=== PATIENT | female | born 1960 | race Caucasian/White ===

== ENCOUNTER → 2018-03-11 10:59 | Outpatient (CLI) | payer OTHER, SELFPAY ==
[2018-03-11 12:44] LABS: TSH w/ Reflex to FT4 0.94 uIU/mL (0.47-4.68)
== END ==
PROVIDERS: PCP Family Medicine; Visit Provider Family Medicine
DX: E03.9 Hypothyroidism, unspecified (principal)
CPT/HCPCS: 36415; 84443

== ENCOUNTER → 2019-05-01 16:20 | Outpatient (CLI) | payer OTHER, SELFPAY | PROVIDERS: PCP Family Medicine; Visit Provider Physician Assistant | DX: R30.0 Dysuria (principal) | CPT/HCPCS: 87077; 87086; 87186 ==

== ENCOUNTER → 2020-10-24 09:52 | Outpatient (CLI) | payer OTHER, SELFPAY ==
[2020-10-24] MEDS: COVID-19 VACC #1, MRNA(MOD) 100 MCG/0.5 ML VIAL IM (10:00)
== END ==
PROVIDERS: PCP Family Medicine; Visit Provider Internal Medicine
DX: Z23 Encounter for immunization (principal)
CPT/HCPCS: 0011A; 91301

== ENCOUNTER → 2020-11-08 11:26 | Outpatient (CLI) | payer OTHER, SELFPAY ==
--- NOTE | 2020-11-08 | DI.MG.S_ITS ---
BILATERAL DIGITAL SCREENING MAMMOGRAM 3D/2D WITH CAD: 11/08/2020 CLINICAL: Routine screening. Comparison is made to exams dated: 12/04/2017 mammogram, 11/27/2016 mammogram, and 08/06/2015 mammogram - [facility]. The tissue of both breasts is heterogeneously dense. This may lower the sensitivity of mammography. Current study was also evaluated with a Computer Aided Detection (CAD) system. No significant masses, calcifications, or other findings are seen in either breast. There has been no significant interval change. IMPRESSION: NEGATIVE There is no mammographic evidence of malignancy. A 1 year screening mammogram is recommended. This exam was interpreted at Station ID: [id number]. NOTE: For mammograms, a report in lay terms will be sent to the patient. Approximately 15% of breast malignancies will not be visualized mammographically. In the management of a palpable breast mass, a negative mammogram must not discourage biopsy of a clinically suspicious lesion. Electronically Signed By: James rubi/kobe:11/08/2020 12:23:52 letter sent: Normal Exam ACR BI-RADS Category 1: Negative 3341F
== END ==
PROVIDERS: PCP Family Medicine; Referring Provider Family Medicine; Visit Provider Family Medicine
DX: Z12.31 Encounter for screening mammogram for malignant neoplasm of breast (principal)
CPT/HCPCS: 77063; 77067

== ENCOUNTER → 2020-11-21 09:56 | Outpatient (CLI) | payer OTHER, SELFPAY ==
[2020-11-21] MEDS: COVID-19 VACC #2, MRNA(MOD) 100 MCG/0.5 ML VIAL IM (10:03)
== END ==
PROVIDERS: PCP Family Medicine; Visit Provider Internal Medicine
DX: Z23 Encounter for immunization (principal)
CPT/HCPCS: 0012A; 91301

== ENCOUNTER 2021-04-03 09:00 | Outpatient (RCR) | payer OTHER, SELFPAY ==
--- NOTE | 2021-03-12 16:00 | PT.OIE ---
Current Diagnoses Other specified disorders of muscle (03/12/21) Stress incontinence (female) (male) (03/12/21) Past Medical History (Last Updated 01/17/20 @ 21:02 by Mary Carter DO) Chronic back pain Elevated high sensitivity C-reactive protein Fall at home (~07/2007) Hypothyroidism Vertigo Past Surgical History (Last Reviewed 05/17/19 @ 15:55 by Maisha Hyman MD) History of carpal tunnel repair History of tonsillectomy Status post hysterectomy (11/03/08) Status post ovarian cystectomy Status post tubal ligation Visit Care Team Role Provider Type Mary Carter DO Attending Provider Physician Primary Care Provider Referring Provider Specialty: [facility] Address: [address] [place] [address], [address], [facility] Email: [email or web address] Physical Therapy Initial Evaluation PT-OP-A Visit Information Start: 03/12/21 11:24 Freq: Status: Active Protocol: Document 03/12/21 11:00 AMB (Rec: 03/16/21 08:43 AMB [email or web address]) Out-Patient Physical Therapy Visit Information Visit Information Visit Type Initial Evaluation Visit Start Time 11:00 Visit Stop Time 11:45 Total Visit Minutes 45 Visit Number 1 PT-OP-B Current Condition Start: 03/12/21 11:08 Freq: Status: Active Protocol: Document 03/12/21 11:08 AMB (Rec: 03/12/21 11:21 AMB [id number]) Current Condition History of Current Condition Onset Date 5 years+ Current Complaints Stress urinary incontinence History of Current Condition Bladder leaking worsening over the last 5-6 years. Had been doing kegels on the drive to work and then retired, sometimes does them now. Leaking even in childhood. G0 . Laughing, jumping exacerbate symptoms. Denies chronic constipation and chronic coughing. Does take magnolia bark for the last year and that is helpful. Vaginal pain with intercourse helped with premarin. Treatment Goals Patient/Caregiver Goals Laugh/ jumping without leaking , get off magnolia bark and see if that helps. Prior Functional Status Baseline Function- ADL's Independent Baseline Function- Mobility Independent Personal Factors Other Personal Factors That May Effect Hysterectomy in 2003 Therapy/Recovery PT-OP-C Subjective Start: 03/12/21 11:24 Freq: Status: Active Protocol: Document 03/12/21 11:00 AMB (Rec: 03/16/21 09:35 AMB [email or web address]) Patient Questionnaires Pelvic Pain and Urgency/Frequency Patient Symptom Scale Pelvic Pain Score 11 PT-OP-I Pelvic Floor Start: 03/12/21 11:24 Freq: Status: Active Protocol: Document 03/12/21 11:00 AMB (Rec: 03/16/21 09:35 AMB [email or web address]) Pelvic Floor Assessment Urine Pelvic Floor Surgery Yes: Hysterectomy 2004 Leakage Size Medium Leakage Cause Exercise Other Leakage Causes laughing Voiding Frequency 7/day Nocturia 1 Urine Pad Type Panty Liner Bowel Other Bowel Symptoms denies constipation Prolapse Prolapse Comments No prolapse visualized Contraction Ability Manual Muscle Testing Left 2 Manual Muscle Testing Right 2 Manual Muscle Testing Anterior 2 Manual Muscle Testing Posterior 2 Muscle Endurance (Seconds) 5 Comments Pelvic Floor Comments Poor levator ani activation, tends to over use abs, hold breath PT-OP-T Assessment and Plan Start: 03/12/21 11:24 Freq: Status: Active Protocol: Document 03/12/21 11:00 AMB (Rec: 03/16/21 09:35 AMB [email or web address]) Physical Therapy Assessment Rehab Potential Rehabilitation Potential Good Evaluation Complexity Number of Personal Factors/Comorbidities 1-2 Number of Body Systems Impaired 1-2 Clinical Presentation at Evaluation Stable Impairments Impairments Activity Tolerance,Functional Activities Goals Two Impairment Pelvic floor strength Short Term Goal (STG) Bhavna will be independent with a HEP for her pelvic floor strength. STG Duration 4 weeks [facility]ist [facility] Goal (LTG) Bhavna will show improved pelvic floor strength by holding a pelvic floor contraction for 10 seconds in standing without compensation. LTG Duration 8 weeks One Impairment Stress incontinence Short Term Goal (STG) Bhavna will laugh without leaking urine. STG Duration 4 weeks [facility] Goal (LTG) Bhavna will jump without leaking urine. LTG Duration 8 weeks Assessment Summary Assessment Bhavna attends physical therapy with a history of life long incontinence. As a child it was moer leaking if she forgot to go the bathroom frequently , and has progressed to more leaking with laughing and jumping. She had good strength of her superficial pelvic floor, but would benefit from strengthening of her levator ani. She did not have any signs of prolapse and denied chronic constipation or cough. Physical Therapy Plan Frequency and Duration Frequency of Treatment 1x/Week Duration of Treatment 8 weeks Plan of Care Start Date 03/12/21 Plan of Care End Date 05/07/21 Therapeutic Interventions Therapeutic Interventions Home Exercise Program,Manual Therapy,Neuromuscular Re- education,Self-Care/Home Management,Therapeutic Activities,Therapeutic Exercises Modalities Biofeedback,Cold Pack/Ice Massage,Electric Stimulation, Hot Packs Next Visit Focus/Plan Next Note Type Treatment Note Next Visit Plan sEMG, progress into seated/ standing HEP as tolerated
--- NOTE | 2021-03-12 16:00 | PT.OPPOC ---
Physical, Occupational & Speech Therapy At [facility] Current Diagnoses Other specified disorders of muscle (03/12/21) Stress incontinence (female) (male) (03/12/21) Visit Care Team Role Provider Type Mary Carter DO Attending Provider Physician Primary Care Provider Referring Provider Specialty: Family Practice Address: [address] [place] [address], [address], [facility] Email: [email or web address] Plan Of Care PT-OP-T Assessment and Plan Start: 03/12/21 11:24 Freq: Status: Active Protocol: Document 03/12/21 11:00 AMB (Rec: 03/16/21 09:35 AMB [email or web address]) Physical Therapy Assessment Rehab Potential Rehabilitation Potential Good Evaluation Complexity Number of Personal Factors/Comorbidities 1-2 Number of Body Systems Impaired 1-2 Clinical Presentation at Evaluation Stable Impairments Impairments Activity Tolerance,Functional Activities Goals Two Impairment Pelvic floor strength Short Term Goal (STG) Bhavna will be independent with a HEP for her pelvic floor strength. STG Duration 4 weeks Senior Care Goal (LTG) Bhavna will show improved pelvic floor strength by holding a pelvic floor contraction for 10 seconds in standing without compensation. LTG Duration 8 weeks One Impairment Stress incontinence Short Term Goal (STG) Bhavna will laugh without leaking urine. STG Duration 4 weeks Semiconductor Equipment Technician Goal (LTG) Bhavna will jump without leaking urine. LTG Duration 8 weeks Assessment Summary Assessment Bhavna attends physical therapy with a history of life long incontinence. As a child it was moer leaking if she forgot to go the bathroom frequently , and has progressed to more leaking with laughing and jumping. She had good strength of her superficial pelvic floor, but would benefit from strengthening of her levator ani. She did not have any signs of prolapse and denied chronic constipation or cough. Physical Therapy Plan Frequency and Duration Frequency of Treatment 1x/Week Duration of Treatment 8 weeks Plan of Care Start Date 03/12/21 Plan of Care End Date 05/07/21 Therapeutic Interventions Therapeutic Interventions Home Exercise Program,Manual Therapy,Neuromuscular Re- education,Self-Care/Home Management,Therapeutic Activities,Therapeutic Exercises Modalities Biofeedback,Cold Pack/Ice Massage,Electric Stimulation, Hot Packs Next Visit Focus/Plan Next Note Type Treatment Note Next Visit Plan sEMG, progress into seated/ standing HEP as tolerated Plan of Care Dates Plan of Care Start Date 03/12/21 Plan of Care End Date 05/07/21 Electronically Signed by: Jacqueline Rosario, PT 03/16/21 0937 Please Sign and Return: I have reviewed this Plan of Care and certify that the skilled therapy services above are required to meet the patient?s needs. Physician Signature Date Printed Name and Credentials Clinical Instructor Signature Printed Name and Credentials
--- NOTE | 2021-03-27 15:48 | PT.OTN ---
Current Diagnoses Other specified disorders of muscle (03/27/21) Stress incontinence (female) (male) (03/27/21) Physical Therapy Treatment Note PT-OP-A Visit Information Start: 03/12/21 11:24 Freq: Status: Active Protocol: Document 03/27/21 09:00 AMB (Rec: 03/27/21 10:55 AMB [id number]) Out-Patient Physical Therapy Visit Information Visit Information Visit Type Treatment Note Visit Start Time 09:00 Visit Stop Time 09:45 Total Visit Minutes 45 Visit Number 2 PT-OP-B Current Condition Start: 03/12/21 11:08 Freq: Status: Active Protocol: Document 03/12/21 11:08 AMB (Rec: 03/12/21 11:21 AMB [id number]) Current Condition History of Current Condition Onset Date 5 years+ Current Complaints Stress urinary incontinence History of Current Condition Bladder leaking worsening over the last 5-6 years. Had been doing kegels on the drive to work and then retired, sometimes does them now. Leaking even in childhood. G0 . Laughing, jumping exacerbate symptoms. Denies chronic constipation and chronic coughing. Does take magnolia bark for the last year and that is helpful. Vaginal pain with intercourse helped with premarin. Treatment Goals Patient/Caregiver Goals Laugh/ jumping without leaking , get off magnolia bark and see if that helps. Prior Functional Status Baseline Function- ADL's Independent Baseline Function- Mobility Independent Personal Factors Other Personal Factors That May Effect Hysterectomy in 2003 Therapy/Recovery PT-OP-C Subjective Start: 03/12/21 11:24 Freq: Status: Active Protocol: Document 03/12/21 11:00 AMB (Rec: 03/16/21 09:35 AMB [email or web address]) Patient Questionnaires Pelvic Pain and Urgency/Frequency Patient Symptom Scale Pelvic Pain Score 11 PT-OP-I Pelvic Floor Start: 03/12/21 11:24 Freq: Status: Active Protocol: Document 03/12/21 11:00 AMB (Rec: 03/16/21 09:35 AMB [email or web address]) Pelvic Floor Assessment Urine Pelvic Floor Surgery Yes: Hysterectomy 2004 Leakage Size Medium Leakage Cause Exercise Other Leakage Causes laughing Voiding Frequency 7/day Nocturia 1 Urine Pad Type Panty Liner Bowel Other Bowel Symptoms denies constipation Prolapse Prolapse Comments No prolapse visualized Contraction Ability Manual Muscle Testing Left 2 Manual Muscle Testing Right 2 Manual Muscle Testing Anterior 2 Manual Muscle Testing Posterior 2 Muscle Endurance (Seconds) 5 Comments Pelvic Floor Comments Poor levator ani activation, tends to over use abs, hold breath PT-OP-Q Treatments Start: 03/12/21 11:24 Freq: Status: Active Protocol: Document 03/27/21 15:46 AMB (Rec: 03/27/21 15:48 AMB [email or web address]) Therapeutic Exercises Sitting Exercises 1 Sitting Exercise Name roll in roll out Reps/Minutes 10 Standing Exercises 1 Standing Exercise Name sit to stand Reps/Minutes 10 Comments difficult Other Exercises 1 Other Exercise Name quadruped pelvic floor contract Reps/Minutes 10 Comments UE flexion PT-OP-T Assessment and Plan Start: 03/12/21 11:24 Freq: Status: Active Protocol: Document 03/27/21 09:00 AMB (Rec: 03/27/21 10:55 AMB [id number]) Physical Therapy Assessment Goals Two Impairment Pelvic floor strength Short Term Goal (STG) Bhavna will be independent with a HEP for her pelvic floor strength. STG Duration 4 weeks Retirement Goal (LTG) Bhavna will show improved pelvic floor strength by holding a pelvic floor contraction for 10 seconds in standing without compensation. LTG Duration 8 weeks One Impairment Stress incontinence Short Term Goal (STG) Bhavna will laugh without leaking urine. STG Duration 4 weeks Retirement Goal (LTG) Bhavna will jump without leaking urine. LTG Duration 8 weeks Assessment Summary Assessment Bhavna did well with exercises, most challenged by moving from sit to stand and standing exercises, especially with long holds. Physical Therapy Plan Next Visit Focus/Plan Next Note Type Treatment Note Next Visit Plan sEMG, progress into seated/ standing HEP as tolerated
--- NOTE | 2021-04-03 10:06 | PT.OTN ---
Current Diagnoses Other specified disorders of muscle (04/03/21) Stress incontinence (female) (male) (04/03/21) Physical Therapy Treatment Note PT-OP-A Visit Information Start: 03/12/21 11:24 Freq: Status: Active Protocol: Document 04/03/21 09:13 AMB (Rec: 04/03/21 09:38 AMB [id number]) Out-Patient Physical Therapy Visit Information Visit Information Visit Type Treatment Note Visit Start Time 09:15 Visit Stop Time 09:45 PT-OP-B Current Condition Start: 03/12/21 11:08 Freq: Status: Active Protocol: Document 03/12/21 11:08 AMB (Rec: 03/12/21 11:21 AMB [id number]) Current Condition History of Current Condition Onset Date 5 years+ Current Complaints Stress urinary incontinence History of Current Condition Bladder leaking worsening over the last 5-6 years. Had been doing kegels on the drive to work and then retired, sometimes does them now. Leaking even in childhood. G0 . Laughing, jumping exacerbate symptoms. Denies chronic constipation and chronic coughing. Does take magnolia bark for the last year and that is helpful. Vaginal pain with intercourse helped with premarin. Treatment Goals Patient/Caregiver Goals Laugh/ jumping without leaking , get off magnolia bark and see if that helps. Prior Functional Status Baseline Function- ADL's Independent Baseline Function- Mobility Independent Personal Factors Other Personal Factors That May Effect Hysterectomy in 2003 Therapy/Recovery PT-OP-C Subjective Start: 03/12/21 11:24 Freq: Status: Active Protocol: Document 04/03/21 09:15 AMB (Rec: 04/03/21 10:04 AMB [id number]) OP-PT Subjective Patient Comments Patient Comments Bhavna has had a difficult time finding time to do her exercises this week. She did have a leak when she fell while hiking. PT-OP-I Pelvic Floor Start: 03/12/21 11:24 Freq: Status: Active Protocol: Document 03/12/21 11:00 AMB (Rec: 03/16/21 09:35 AMB [email or web address]) Pelvic Floor Assessment Urine Pelvic Floor Surgery Yes: Hysterectomy 2004 Leakage Size Medium Leakage Cause Exercise Other Leakage Causes laughing Voiding Frequency 7/day Nocturia 1 Urine Pad Type Panty Liner Bowel Other Bowel Symptoms denies constipation Prolapse Prolapse Comments No prolapse visualized Contraction Ability Manual Muscle Testing Left 2 Manual Muscle Testing Right 2 Manual Muscle Testing Anterior 2 Manual Muscle Testing Posterior 2 Muscle Endurance (Seconds) 5 Comments Pelvic Floor Comments Poor levator ani activation, tends to over use abs, hold breath PT-OP-Q Treatments Start: 03/12/21 11:24 Freq: Status: Active Protocol: Document 04/03/21 09:15 AMB (Rec: 04/03/21 10:04 AMB [id number]) Neuro Re-Education Treatment Other Activities 1 Comments quick flicks and long holds with sEMG PT-OP-T Assessment and Plan Start: 03/12/21 11:24 Freq: Status: Active Protocol: Document 04/03/21 09:13 AMB (Rec: 04/03/21 09:38 AMB [id number]) Physical Therapy Assessment Assessment Summary Assessment max 23, avg 14, baseline 2 for 10 sec holds. Lila pelvic floor while moving from sit to stand is still challenging, encouraged pt to find time during other activities (brushing teeth, moving from sit to stand, to do her exercises. Physical Therapy Plan Next Visit Focus/Plan Next Note Type Treatment Note Next Visit Plan follow up on lila with movement (sit to stand)
--- NOTE | 2021-05-20 08:57 | PT.OPDS ---
Current Diagnoses Other specified disorders of muscle (04/03/21) Stress incontinence (female) (male) (04/03/21) Visit Care Team Role Provider Type Mary Carter DO Attending Provider Physician Primary Care Provider Referring Provider Specialty: [facility] Address: [address] [place] [address], [address], [address] Email: [email or web address] Visit Number Visit Number 2 Discharge Summary PT-OP-B Current Condition Start: 03/12/21 11:08 Freq: Status: Active Protocol: Document 03/12/21 11:08 AMB (Rec: 03/12/21 11:21 AMB [id number]) Current Condition History of Current Condition Onset Date 5 years+ Current Complaints Stress urinary incontinence History of Current Condition Bladder leaking worsening over the last 5-6 years. Had been doing kegels on the drive to work and then retired, sometimes does them now. Leaking even in childhood. G0 . Laughing, jumping exacerbate symptoms. Denies chronic constipation and chronic coughing. Does take magnolia bark for the last year and that is helpful. Vaginal pain with intercourse helped with premarin. Treatment Goals Patient/Caregiver Goals Laugh/ jumping without leaking , get off magnolia bark and see if that helps. Prior Functional Status Baseline Function- ADL's Independent Baseline Function- Mobility Independent Personal Factors Other Personal Factors That May Effect Hysterectomy in 2003 Therapy/Recovery PT-OP-C Subjective Start: 03/12/21 11:24 Freq: Status: Active Protocol: Document 04/03/21 09:15 AMB (Rec: 04/03/21 10:04 AMB [id number]) OP-PT Subjective Patient Comments Patient Comments Bhavna has had a difficult time finding time to do her exercises this week. She did have a leak when she fell while hiking. PT-OP-I Pelvic Floor Start: 03/12/21 11:24 Freq: Status: Active Protocol: Document 03/12/21 11:00 AMB (Rec: 03/16/21 09:35 AMB [email or web address]) Pelvic Floor Assessment Urine Pelvic Floor Surgery Yes: Hysterectomy 2004 Leakage Size Medium Leakage Cause Exercise Other Leakage Causes laughing Voiding Frequency 7/day Nocturia 1 Urine Pad Type Panty Liner Bowel Other Bowel Symptoms denies constipation Prolapse Prolapse Comments No prolapse visualized Contraction Ability Manual Muscle Testing Left 2 Manual Muscle Testing Right 2 Manual Muscle Testing Anterior 2 Manual Muscle Testing Posterior 2 Muscle Endurance (Seconds) 5 Comments Pelvic Floor Comments Poor levator ani activation, tends to over use abs, hold breath PT-OP-T Assessment and Plan Start: 03/12/21 11:24 Freq: Status: Active Protocol: Document 05/20/21 08:56 AMB (Rec: 05/20/21 08:57 AMB [email or web address]) Physical Therapy Assessment Assessment Summary Assessment The patient called to say that she did not need any more appointments after her second appointment. She was seen for two appointments therefore did not meet her goals. Physical Therapy Plan Discharge Physical Therapy Discharge Reasons No Longer Attending PT
== END 2021-06-07 14:26 ==
LOC: PHYS 09:00
PROVIDERS: PCP Family Medicine; Referring Provider Family Medicine; Visit Provider Family Medicine
DX: M62.89 Other specified disorders of muscle (principal); N39.3 Stress incontinence (female) (male)
CPT/HCPCS: 97110; 97112; 97161

== ENCOUNTER → 2021-12-10 14:07 | Outpatient (CLI) | payer OTHER, SELFPAY ==
--- NOTE | 2021-12-10 | DI.MRI.S_ITS ---
PROCEDURE: MR CERVICAL SPINE WO CON INDICATIONS: Cervicalgia TECHNIQUE: Noncontrast sagittal T1 spin echo and T2 fast spin echo, sagittal STIR, foraminal oblique sagittal T2 fast spin echo, and axial gradient echo or T2 fast spin echo through the cervical spine. COMPARISON: [facility] [place], CR, XR CERVICAL SPINE WITH OBLIQUES, 11/18/2021, 10:38. FINDINGS: Image quality: Excellent. Alignment and Curvature: There is normal bony alignment. There is straightening normal cervical spine curvature. Bone Marrow: Marrow demonstrates normal overall signal. Spinal Cord: Visualized spinal cord has normal size and signal. No cerebellar tonsillar herniation. Paraspinous Soft Tissues: No paravertebral masses. Prevertebral soft tissues are normal in thickness. C2-C3: Loss of disc signal. Mild, diffuse disc bulge. Moderate left facet hypertrophy. No central stenosis. Severe left neural foraminal narrowing with compression of the left C3 nerve root. C3-C4: Loss of disc signal. Mild, diffuse disc bulge. Moderate left facet hypertrophy. No central stenosis. Severe left neural foraminal narrowing with compression of the exiting left C4 nerve root. C4-C5: Loss of disc signal and mild loss of disc height. Mild, diffuse disc bulge. Severe left facet hypertrophy. Mild narrowing of the central canal. Severe left neural foraminal narrowing with compression of the exiting left C5 nerve root. C5-C6: Loss of disc signal and height. Moderate, diffuse disc bulge. Mild bilateral facet hypertrophy. Severe right uncovertebral joint hypertrophy. Moderate narrowing of the central canal. Severe right and moderate left neural foraminal narrowing with compression of the exiting right C6 nerve root. C6-C7: Loss of disc signal. Mild to moderate diffuse disc bulge. Mild narrowing of the central canal. No neural foraminal narrowing. No neural compression. C7-T1: Loss of disc signal and height. Moderate, diffuse disc bulge. Mild narrowing of the central canal. No neural foraminal narrowing. No neural compression IMPRESSION: 1. Multilevel degenerative disc disease. 2. Multilevel facet arthropathy. 3. No severe central canal narrowing. 4. Severe left C2-C3, C3-C4 and C4-C5 neural foraminal narrowing with compression of the exiting left C3, C4 and C5 nerve roots. Severe right C5-C6 neural foraminal narrowing with compression of the exiting right C6 nerve root. Dictated by: Ame Lafleur MD, PhD on 12/10/2021 at 15:36 Approved by: Ame Lafleur MD, PhD on 12/10/2021 at 15:40
== END ==
PROVIDERS: PCP Family Medicine; Referring Provider Physical Medicine & Rehabilitation; Visit Provider Physical Medicine & Rehabilitation
DX: M50.31 Other cervical disc degeneration, high cervical region (principal); M47.812 Spondylosis without myelopathy or radiculopathy, cervical region; M48.02 Spinal stenosis, cervical region
CPT/HCPCS: 72141

== ENCOUNTER → 2022-11-05 15:01 | Outpatient (CLI) | payer OTHER, SELFPAY ==
--- NOTE | 2022-11-05 | DI.MG.S_ITS ---
BILATERAL DIGITAL SCREENING MAMMOGRAM 3D/2D WITH CAD: 11/05/2022 CLINICAL: Routine screening. Comparison is made to exams dated: 11/08/2020 mammogram, 12/04/2017 mammogram, and 11/27/2016 mammogram - [facility]. Both breasts are heterogeneously dense, which may obscure small masses (category c / 51-75% glandular tissue). Current study was also evaluated with a Computer Aided Detection (CAD) system. No significant masses, calcifications, or other findings are seen in either breast. There has been no significant interval change. IMPRESSION: NEGATIVE There is no mammographic evidence of malignancy. A 1 year screening mammogram is recommended. Based on the Tyrer Cuzick model (a risk assessment model) the patient's lifetime risk is 9.8% and her 10 year risk is 4.6%. According to the ACR, ACS, and NCCN guidelines, an annual breast MRI exam along with mammogram is recommended if the patient's lifetime risk is 20% or greater. This exam was interpreted at Station ID: [id number]. NOTE: For mammograms, a report in lay terms will be sent to the patient. Approximately 15% of breast malignancies will not be visualized mammographically. In the management of a palpable breast mass, a negative mammogram must not discourage biopsy of a clinically suspicious lesion. Electronically Signed By: Ela navarrete/kobe:11/05/2022 16:09:05 letter sent: Normal Exam ACR BI-RADS Category 1: Negative [id number]
== END ==
PROVIDERS: PCP Family Medicine; Referring Provider Family Medicine; Visit Provider Family Medicine
DX: Z12.31 Encounter for screening mammogram for malignant neoplasm of breast (principal)
CPT/HCPCS: 77063; 77067

== ENCOUNTER → 2023-03-24 10:19 | Outpatient (CLI) | payer OTHER, SELFPAY ==
--- NOTE | 2023-03-24 10:21 | DI.RAD.S_ITS ---
Bone Density Report Name: CORTES MAYA Age: 62 Sex: Female Ethnicity: White Date of : 1960 Indication: postmenopausal; screening for osteoporosis; Referring Provider: DONG MON Study: Bone densitometry was performed. Exam Date: March 24, 2023 Accession number: [id number] Bone Density: Region BMD T-score Z-score Classification AP Spine(L1-L4) 0.843 -1.9 -0.1 Osteopenia Femoral Neck (Left) 0.631 -2.0 -0.5 Osteopenia Total Hip (Left) 0.723 -1.8 -0.6 Osteopenia Femoral Neck (Right) 0.664 -1.7 -0.2 Osteopenia Total Hip (Right) 0.784 -1.3 -0.1 Osteopenia Total Hip Mean 0.753 -1.6 -0.4 Osteopenia World Health Organization criteria for BMD impression classify patients as: Normal (T-score at or above -1.0), Osteopenia (T-score between -1.0 and -2.5), or Osteoporosis (T-score at or below -2.5). 10-year Fracture Risk(1): Major Osteoporotic Fracture 8.9% Hip Fracture 1.4% Reported Risk Factors: [place] (), Neck BMD=0.631, BMI=19.7 (1) FRAX(R) Version 3.08. Fracture probability calculated for an untreated patient. Fracture probability may be lower if the patient has received treatment. Impression: The patient has low bone mass, based on the Left Femoral Neck T-score. The patient has an estimated ten-year risk of hip fracture of 1.4% and an estimated ten-year risk of major fracture of 8.9%, based on the WHO FRAX algorithm. Discussion: BONE DENSITY IS LOW AT ONE OR MORE SKELETAL SITES. This patient's lowest T-score is low at one or more skeletal sites. It meets the World Health Organization's (WHO) criteria for low bone mass (T-score between -1.0 and -2.5). The patient's 10-year risk of fracture as calculated by FRAX is less than the threshold where pharmacological therapy is recommended by the National Osteoporosis Foundation (NOF). However, all treatment decisions require clinical judgment and consideration of individual patient factors, including patient preferences, comorbidities, previous drug use, risk factors not captured in the FRAX model (e.g., frailty, falls, vitamin D deficiency, increased bone turnover, interval significant decline in bone density) and possible under or overestimation of fracture risk by FRAX. The patient should follow a healthful lifestyle (good nutrition with adequate calcium and vitamin D, and appropriate weight-bearing exercise). Follow-Up: Consider repeating this study in 2 to 3 years to reassess this patient's status, or sooner if there is some new clinical indication. Reported by: MINGO LEVY M.D. on 03/24/2023 11:20:00 AM.
== END ==
PROVIDERS: PCP Registered Nurse Diabetes Educator; Referring Provider Registered Nurse Diabetes Educator; Visit Provider Registered Nurse Diabetes Educator
DX: Z13.820 Encounter for screening for osteoporosis (principal); M85.852 Other specified disorders of bone density and structure, left thigh; Z78.0 Asymptomatic menopausal state; Z90.710 Acquired absence of both cervix and uterus
CPT/HCPCS: 77080

== ENCOUNTER → 2024-02-05 08:13 | Outpatient (CLI) | payer MEDICARE, OTHER, SELFPAY ==
--- NOTE | 2024-02-05 08:14 | DI.MG.S_ITS ---
BILATERAL DIGITAL SCREENING MAMMOGRAM 3D/2D WITH CAD: 02/05/2024 CLINICAL: Routine screening. Comparison is made to exams dated: 11/05/2022 mammogram, 11/08/2020 mammogram, and 12/04/2017 mammogram - [facility]. Both breasts are heterogeneously dense, which may obscure small masses (category c / 51-75% glandular tissue). Current study was also evaluated with a Computer Aided Detection (CAD) system. No significant masses, calcifications, or other findings are seen in either breast. There has been no significant interval change. IMPRESSION: NEGATIVE There is no mammographic evidence of malignancy. A 1 year screening mammogram is recommended. Based on the Tyrer Cuzick model (a risk assessment model) the patient's lifetime risk is 9.5% and her 10 year risk is 4.6%. According to the ACR, ACS, and NCCN guidelines, an annual breast MRI exam along with mammogram is recommended if the patient's lifetime risk is 20% or greater. This exam was interpreted at Station ID: [id number]. NOTE: For mammograms, a report in lay terms will be sent to the patient. Approximately 15% of breast malignancies will not be visualized mammographically. In the management of a palpable breast mass, a negative mammogram must not discourage biopsy of a clinically suspicious lesion. Electronically Signed By: James rubi/kobe:02/05/2024 11:14:18 letter sent: Normal Exam ACR BI-RADS Category 1: Negative [id number]
== END ==
LOC: MAMMO 08:13
PROVIDERS: PCP Registered Nurse Diabetes Educator; Referring Provider Registered Nurse Diabetes Educator; Visit Provider Registered Nurse Diabetes Educator
DX: Z12.31 Encounter for screening mammogram for malignant neoplasm of breast (principal); R92.333 Mammographic heterogeneous density, bilateral breasts
CPT/HCPCS: 77063; 77067

== ENCOUNTER → 2025-04-11 09:14 | Outpatient (CLI) | payer MEDICARE, OTHER, SELFPAY ==
--- NOTE | 2025-04-11 09:17 | DI.MG.S_ITS ---
MM screening mammo BI: 04/11/2025. BI-RADS: 1 CLINICAL: 64-year old female for bilateral screening mammogram. Tyrer-Cuzick lifetime risk of 3.7%. No personal or first-degree family history of breast cancer. PRIOR EXAMS 02/05/2024, 11/05/2022, 11/08/2020, 12/04/2017. MAMMOGRAPHY TECHNIQUE: 2D and 3D (tomosynthesis) digital mammographic views obtained, with additional images as needed for full coverage. Current study was also evaluated with a Computer Aided Detection (CAD) system. DENSITY C. The breasts are heterogeneously dense, which may obscure small masses. MAMMOGRAPHY FINDINGS Bilateral: No suspicious mass, asymmetry, microcalcification, or other abnormality seen. IMPRESSION: * No evidence of malignancy. RECOMMENDATIONS Bilateral * Annual screening mammography. OVERALL ASSESSMENT CATEGORY BI-RADS-1: Negative. The [employer] recommends annual screening mammography beginning at age 40 for women with average risk of breast cancer. ELECTRONICALLY SIGNED: Karma Bradley M.D. on 04/11/2025 at 10:26:10 PM PT Interpreting Station ID: [id number]
--- NOTE | 2025-04-11 09:17 | DI.RAD.S_ITS ---
PROCEDURE: XR DEXA AXIAL SKELETON INDICATIONS: osteoporosis screening COMPARISON: [facility], CR, XR DEXA AXIAL SKELETON, 03/24/2023, 10:40. FINDINGS: Lumbar Spine: Bone mineral density 0.951 (previously 0.843) g/cm2, T score -0.9 (previously -1.9). Left Femoral Neck: Bone mineral density 0.620 (previously 0.631) g/cm2, T score -2.1 (previously -2.0). Left Hip: Bone mineral density 0.725 (previously 0.723) g/cm2, T score -1.8 (previously -1.8). Fracture Risk Calculation (when applicable): 10-year fracture risk of a major osteoporotic fracture 13 percent and of a hip fracture 2.5 percent. (T score greater or equal to -1.0 to: NORMAL) (T score from -1.1 to -2.4: OSTEOPENIA) (T score less than or equal to -2.5: OSTEOPOROSIS) IMPRESSION: Osteopenia--- recommend repeat DEXA in 2-3 years for reassessment. Follow-up guidelines as follows: Osteoporosis: Consider a repeat DEXA and Vertebral Fracture Assessment (VFA) exam in 2 years or sooner if medically necessary, to reassess this patient's status. Osteopenia: Consider a repeat DEXA in 2-3 years to reassess this patient's status, or if there is a new clinical indication. Normal: Consider a repeat DEXA in 5 years or sooner, or if there is a new clinical indication. All treatment decisions require clinical judgment and consideration of individual patient factors, including patient preferences, comorbidities, previous drug use, risk factors not captured in the FRAX model (e.g., frailty, falls, vitamin D deficiency, increased bone turnover, interval significant decline in bone density ) and possible under- or over-estimation of fracture risk by FRAX. In addition, the NOF Guide recommends that FDA-approved medical therapies be considered in postmenopausal women and men age >= 50 years with a: * Hip or vertebral (clinical or morphometric) fracture * T-score of <=-2.5 at the spine or hip * Ten-year fracture probability by FRAX of >= 3% for hip fracture or >=20% for major osteoporotic fracture. Dictated by: Bhanu Washburn M.D. on 04/11/2025 at 21:51 Approved by: Bhanu Washburn M.D. on 04/11/2025 at 21:53
== END ==
LOC: MAMMO 09:15
PROVIDERS: PCP Registered Nurse Diabetes Educator; Referring Provider Registered Nurse Diabetes Educator; Visit Provider Registered Nurse Diabetes Educator
DX: Z12.31 Encounter for screening mammogram for malignant neoplasm of breast (principal); R92.333 Mammographic heterogeneous density, bilateral breasts; M85.88 Other specified disorders of bone density and structure, other site
CPT/HCPCS: 77063; 77067; 77080